=== PATIENT | female | born 1945 | race Caucasian/White ===

== ENCOUNTER 2018-04-30 06:30 | Inpatient (IN) ==
--- NOTE | 2018-04-16 12:15 | ANES ---
Anesthesia Pre Procedure Eval HOME MEDICATIONS aspirin 325 mg tablet 325 mg PO DAILY 12/10/17 [Last Taken 02/06/18] fluoxetine 40 mg capsule 40 mg PO DAILY #90 cap 01/15/18 [Last Taken 02/06/18] furosemide 20 mg tablet 20 mg PO DAILY PRN #30 tab 01/15/18 [Last Taken Unknown] baclofen 5 mg tablet 5 mg PO BID #60 tab 02/13/18 [Last Taken Unknown] gabapentin 300 mg capsule 300 mg PO BID #60 cap 02/13/18 [Last Taken Unknown] trazodone 300 mg tablet 300 mg PO DAILY #30 tab 04/16/18 [Last Taken Unknown] Allergies/Adverse Reactions: Allergies Allergy/AdvReac Type Severity Reaction Status Date / Time fentanyl [From Duragesic] AdvReac Mild dyspnea,lily Verified 04/05/18 09:13 sea pentazocine lactate AdvReac Unknown dizziness Verified 04/05/18 09:13 [From Talwin] amitriptyline AdvReac fatigue Verified 04/05/18 09:13 - Planned Procedure Planned Procedure: Arthroplasty L Total Hip Medication List Reviewed:: Yes Allergies Verified: Yes Medical History (Last Updated 04/16/18 @ 12:14 by Nikita Sanchez CRNA) Degeneration of lumbar or lumbosacral intervertebral disc Onset Date: ~06/26/17 Polio Actinic keratitis Allergic rhinitis Anxiety and depression Onset Date: ~02/22/16 COPD (chronic obstructive pulmonary disease) Onset Date: ~06/21/07 Chronic pain syndrome Onset Date: ~02/15/16 Multi level DJD HTN (hypertension) Onset Date: ~06/26/17 Hyperlipidemia Onset Date: ~04/05/15 residential prescription opiate use MRI 06/14/2015- severe disc height loss at L1-L2 and broad-based disc bulge. At L2-3 she has the same situation. At L3-L4 she has severe disc height loss with broad-based circumferential disc bulge and facet joint changes. At the L4-5 she has broad base circumferential disc bulge and facet joint arthroplasty. At L5-S1 she has severe disc height loss wit broad based circumflex partial disc bulge. Due to her health, she is not a surgical candidate. she has only tolerated oral pain medications. With the changes in the narcotic management recommend no more than 75mg of morphine per day per from [facility] in [place], [place]. Osteoarthrosis Raynauds phenomenon Onset Date: ~04/05/15 Spondylosis lumbar/lumbosacral region with radiculopathy Colonoscopy refused Mammogram declined Surgical History (Last Reviewed 04/16/18 @ 12:14 by Nikita Sanchez CRNA) History of ankle surgery fx-left--pinning- age 15 History of carpal tunnel surgery Onset Date: ~2004 History of hysterectomy Hx laparoscopic cholecystectomy Onset Date: ~08/20/07 --biliary dyskinesia Hx of laminectomy hld postlaminectomy syndrome, not elsewhere classified Hx of neck surgery Family History (Last Reviewed 04/16/18 @ 12:14 by Nikita Sanchez CRNA) Sister Heart disease Father Cancer kidney Mother Cirrhosis of liver Grandmother Heart disease Grandfather Cancer stomach - Family Anesthesia History Family History:: no untoward family reactions to anesthesia, no familial bleeding tendencies, no family history of clotting disorders, no family history of premature - Airway/Neck/Teeth Teeth Condition: missing, poor condition Mallampatti Score: 2 Thyromental (T-M) distance: > 6 cm Mandibulo Hyoid distance: > 3 cm - Respiratory Respiratory History: COPD Smoking Status: Former smoker Discussed smoking cessation including day of surgery: No Sleep Apnea currently treated: No Sleep Apnea by current assessment: No Discussed Risks/Treatment of TIARA: No - Cardiovascular Tolerate Activity: Fair Heart Sounds: S1 & S2, Regular - Anesthesia Assessment and Plan ASA Class: PS, III Anesthesia Type Plan: Spinal
[~2018-04-30 06:30] MED LIST: ROPIVACAINE HCL/PF 100 MG, EPINEPHrine 0.2 MG, KETOROLAC TROMETHAMINE 30 MG in NORMAL S... IJ PRN; TRANEXAMIC ACID 1,000 MG in NORMAL SALINE 100 ML IV PRN; ceFAZolin SODIUM 1 GM VIAL IV PRN
[2018-04-30] MEDS: RINGER'S SOLUTION,LACTATED 1,000 ML IV PRN ×3 (07:20→11:00)
[2018-04-30] MEDS ORDERED: HYDROcodone/ACETAMINOPHEN 1 EACH TABLET PO PRN ×2 (11:31)
[2018-04-30] MEDS ORDERED: ONDANSETRON HCL/PF 2 MG/ML VIAL IV PRN (11:31)
[2018-04-30] MEDS ORDERED: MAGNESIUM HYDROXIDE 30 ML UDC PO PRN (11:31)
[2018-04-30] MEDS ORDERED: NORMAL SALINE 1,000 ML IV PRN (11:31)
[2018-04-30] MEDS ORDERED: MAG HYDROX/ALUMINUM HYD/SIMETH 30 ML UDC PO PRN (11:31)
[2018-04-30] MEDS ORDERED: ACETAMINOPHEN 500 MG TABLET PO PRN (11:31)
[2018-04-30] MEDS ORDERED: FUROSEMIDE 20 MG TABLET PO PRN (11:36)
--- NOTE | 2018-04-30 11:47 | OR ---
Operative Report - Dictated Report Narrative: Date: 04/30/2018 Preoperative diagnosis: Left hip degenerative joint disease. Postoperative diagnosis: Left hip degenerative joint disease. Procedure: Left total hip arthroplasty. Surgeon: Kwadwo Das M.D. Ict Sales Representative: José Becerra PA-C Anesthesia: Spinal and local periarticular joint injection. Complications: None Specimens: Bone for disposal. Estimated blood loss: 150 milliliters. Retained implants: Depuy [place] basic cemented size 6 femoral stem. Size 52 millimeter ouside diameter 3-hole [place] Gription acetabular cup. 52 millimeter outside by 36 millimeter inside diameter highly cross-linked acetabular liner. 36 millimeter diameter + 5 millimeter cobalt chromium femoral head. Cancellous 6.5mm screw 30 millimeter length Indications: Latoya is a 72-year-old female community ambulator. This patient was followed in my clinic for period of time with significant complaints of left hip pain consistent with arthritic changes. She has failed conservative measures including but not limited to activity modification, passage of time, medications, and other conservative measures. Patient wished to proceed with surgical treatment. The risks, benefits, and alternatives were discussed in clinic. The risks of , blood clots, bleeding, infection, nerve/tendon blood vessel/ injury, malposition of components, dislocation and/or instability of joint, intraoperative fracture, postoperative limited range of motion, persistent pain, failure of components, and need for additional procedures. Patient wished to proceed. Consent was obtained after answering all questions. Procedure: After marking the correct extremity on the floor, the patient was taken to the operating room. A timeout was performed. IV antibiotics consisting of 1 g of Ancef was administered prior to the procedure. A spinal anesthetic was induced by anesthesia. A Bergeron catheter was inserted. The patient was then transitioned to a lateral position on a well-padded pegboard. And an axillary roll was placed. The head was in neutral position. The non-ope rative down leg was well-padded with SCD and ALISON hose in place. The arms were supported and padded to protect from any undue pressure on the bony prominences and nerves. Well-padded anterior and posterior pelvic and chest posts were secured in order to maintain a stable position of the pelvis. This was placed so that the pelvis was perpendicular to the floor. The body was in line with the pelvis. Once it was felt that we had protected all the bony prominences and the patient was well secured with a safety belt as well, the leg was pre- scrubbed with alcohol, prepped and draped in a standard sterile fashion. A standard anterior lateral hip incision was marked out over the greater trochanter. Ioban drapes were then placed. The skin incision was then made. Sharp dissection with a scalpel utilizing cautery for hemostasis was carried out down to the gluteus and iliotibial band fascia. This was split in line with the skin incision. The greater trochanter bursa was excised. The anterior and posterior margins of the abductor tendon were identified. The anterior 1/3 of the tendon was tagged and reflected off the greater trochanter leaving a sleeve of tendon for repair at the completion of the case. This exposed the underlying hip joint capsule. A limb length stitch was placed in the skin and referenced off a mingo on the greater trochanter for evaluation of intraoperative limb lengths. An inverted T-type capsulotomy was made extending this up to the brim of the acetabulum. Using Homans to assist with elevation of the soft tissues off the anterior, superior, and inferior aspects of the femoral neck, the hip was then placed in a figure 4 position and the femoral head was dislocated. With the leg in an externally rotated and adducted position, the cutting flag was utilized in order to mingo for a standard femoral neck cut approximately a fingerbreadth above the level of the lesser trochanter. This was done while protecting the surrounding soft tissues with Homans. The femoral head was then removed and sized for guidance on preparation of the acetabulum. It was noted that there was loss of articular cartilage on both the femoral head and weightbearing portions of the acetabulum. We then returned the leg to the table and turned our attention to the acetabulum. While protecting the surrounding soft tissues, the labrum and remaining tissue in the fovea were excised using a scalpel and cautery. A series of reamers up to size 51 millimeter were utilized to prepare the acetabulum. The final reamer had good purchase and exposed the bleeding subchondral bone. The acetabulum was then thoroughly irrigated ensuring that all bony and cartilaginous materials were removed and the final acetabular shell was impacted into place. This was placed in approximately 40 degrees of abduction and 20 degrees of anteversion utilizing the outrigger and body axis for alignment. This had a good press fit. One 6.5mm cancellous screw was placed in the posterior superior quadrant of the acetabulum. The shell was then thoroughly irrigated and the final polyethylene was impacted into place ensuring that it seated completely. This was then protected with a sponge while we returned our attention to the femur. With the leg in a figure 4 position utilizing Onel retractors for soft tissue protection, a box cutting osteotome, followed by Charnley awl, followed by serial broaches were utilized in order to prepare the femur. We were able to get a size 6 broach completely seated. A size 7 broach was advanced but was unable to be completely seated due to concern for causing intra-operative fracture. We elected to proceed with a size 6 cemented stem and trial off of our final stem. The proximal femur was visualized to ensure that there were no signs of fracture. A canal cement plug was placed distally and the canal was thoroughly irrigated using pulsatile vacuum brush device. The canal was then thoroughly dried with a suction device and canal sponge. Cement was vacuum mixed per the text transcriber's instructions and placed into a cement gun. Cement was then placed in a dry irrigated femur and a moderate cementing technique using a pressurizing device. The stem was then placed in the appropriate version compared to her [place] anatomy and held in place while the cement cured and the extruded cement was removed. Once the cement was fully cured we ensured that the stem was stable and that there were no signs of fracture. The extruded cement was removed, and the joint and the capsule were thoroughly evaluated to ensure there were no pa ent fragments. A series of heads were trialed. It was found that a +5 mm femoral head gave good overall stability. There was minimal longitudinal instability. With the leg in the position of sleep the femoral head was well covered. Hip range of motion was able to reach full extension and external rotation to greater than 75 degrees prior to impingement along the posterior acetabulum. The hip was able to be flexed to greater than 90 degrees with internal rotation greater than 60 degrees prior to anterior impingement. The limb lengths were near equal based on comparison to the contralateral side. The hip was then reduced and seated completely. The capsule was repaired with interrupted #1 Ethibond. The abductor tendon was repaired to the greater trochanter utilizing Mersilene tape through drill holes. This was oversewn with #1 Vicryl. The fascia was closed with interrupted #1 Vicryl. The wounds were thoroughly irrigated as we closed in layers. The deep fat layers were closed with 0 Vicryl and the dermis was approximated with interrupted 3-0 Vicryl. The skin was closed with a running subcuticular 4-0 monocryl and a Prineo dressing. All sponge, needle, blade, and instrument counts were correct prior to closing the wounds. Sterile dressings consisting of 4 x 4's, ABD, and tape were applied. The patient was awoken and transferred to her hospital bed and then to the postanesthesia care unit in stable condition. Postoperative condition: The plan is to return to the medical/surgical inpatient floor postoperatively. Postoperatively 24 hours of IV antibiotics, pain control, physical therapy, occupational therapy, and medical comanagement will be utilized. Patient will be weightbearing as tolerated with anterior hip precautions. Postoperative films will be obtained in the recovery room.
--- NOTE | 2018-04-30 12:18 | ANES ---
Post Anesthesia Discharge - Transfer of Care Transfer of Care handoff given to nurse: Yes - Discharge from PACU Discharge from PACU when meets criteria: Yes
--- NOTE | 2018-04-30 13:16 | CONS ---
[facility] - General Date of Service: 04/30/18 Narrative: Patient is seen on the floor. She is post op right hip replacement this morning for for OA. She reports having no pain currently, and denies complaints. Source: patient Exam Limitations: no limitations - History of Present Illness Allergies/Adverse Reactions: Allergies fentanyl [From Duragesic] Adverse Reaction (Mild, Verified 04/30/18 07:05) dyspnea,nausea pentazocine lactate [From Talwin] Adverse Reaction (Unknown, Verified 04/30/18 07:05) dizziness amitriptyline Adverse Reaction (Verified 04/30/18 07:05) fatigue Home Medications: Home Medications Medication Instructions Recorded Last Taken aspirin 325 mg tablet 325 mg PO DAILY 12/10/17 04/21/18 06:00 fluoxetine 40 mg capsule 40 mg PO DAILY #90 cap 01/15/18 02/06/18 furosemide 20 mg tablet 20 mg PO DAILY PRN #30 tab 01/15/18 Unknown trazodone 300 mg tablet 300 mg PO DAILY #30 tab 04/16/18 Unknown baclofen 5 mg tablet 5 mg PO BID #60 tab 04/24/18 Unknown gabapentin 300 mg capsule 300 mg PO BID #60 cap 04/24/18 Unknown Procedures Application of splint (11/25/02) Exploration of tendon sheath of hand (12/09/04) Injection of anesthetic into peripheral nerve for analgesia (06/11/01) Injection of anesthetic into spinal canal for analgesia (12/24/06) Injection of other agent into spinal canal (12/24/06) Injection of steroid (12/24/06) Injection or infusion of other therapeutic or prophylactic substance (06/11/01) Laparoscopic cholecystectomy (08/20/07) Other immobilization, pressure, and attention to wound (01/06/99) Release of carpal tunnel (12/09/04) Medications - Medications Current Medications: Current Medications Cefazolin Sodium (Ancef) 1 gm IV PRN PRN; Protocol PRN Reason: Perioperative Stop: 04/30/18 23:00 Last Admin: 04/30/18 09:15 Dose: 1 gm Documented by: Tranexamic Acid 1,000 mg/ (Sodium Chloride) 110 mls @ 600 mls/hr IV PRN PRN PRN Reason: blood loss reduction Stop: 04/30/18 23:00 Last Admin: 04/30/18 10:30 Dose: 600 mls/hr Documented by: Lactated Ringer's (Lactated Ringers) 1,000 mls @ 175 mls/hr IV .[id number] PRN PRN Reason: HYDRATION Stop: 04/30/18 23:59 Last Admin: 04/30/18 11:00 Dose: 175 mls/hr Documented by: Ropivacaine 100 mg/Epinephrine HCl 0.2 mg/Ketorolac Tromethamine 30 mg/Sodium Chloride 111.2 mls @ 0.01 mls/hr IJ PRN PRN PRN Reason: JOINT INJECTION Stop: 04/30/18 23:59 Last Admin: 04/30/18 11:00 Dose: 0.01 mls/hr Documented by: Review of Systems - Review of Systems Respiratory: Absent: Shortness of Breath Cardiac: Absent: Chest Pain, Edema Abdominal: Absent: Vomiting Physical Examination - Exam Vital Signs: Vital Signs - Last Taken Temp 36.8 C 04/30/18 12:35 Pulse 71 04/30/18 12:35 Resp 15 04/30/18 12:35 BP 160/91 H 04/30/18 12:35 Pulse Ox 99 04/30/18 12:35 O2 Oxygen Delivery Method Room Air Constitutional: Present: Alert, Oriented x3, No distress, Thin and frail Respiratory: Present: normal breath sounds, no respiratory distress Cardiovascular/Chest: Present: regular rate, rhythm Abdomen: Present: soft, nontender Extremity: Absent: lower extremity edema Neurologic: Present: other - sensation to light touch intact to bilateral lower extremities Eye contact: Present: cooperative - Assessments/Findings (1) Osteoarthritis, hip, bilateral Diagnosis(s): Will defer mgt to Dr. Das. She is not in pain currently. Problem: Chronic Qualifiers: (2) Chronic pain Diagnosis(s): Patient weaned herself off morphine last year, and has chronic back pain. She asked today if I could order her a back brace, which will be done through the clinic system. She reports having no pain currently. Problem: Chronic (3) COPD (chronic obstructive pulmonary disease) Diagnosis(s): Remote diagnosis. No symptoms currently, and she does not take medications for COPD. Will monitor her breathing, and add albuterol if needed. Problem: Chronic (4) Atrial fibrillation, transient Diagnosis(s): She had afib on pre-op EKG, not present on subsequent EKGs. She is currently in NSR. Continue telemetry. Problem: Resolved
[2018-04-30] MEDS: ceFAZolin SODIUM 1 GM in DEXTROSE 5 % IN WATER 100 ML IV SCH ×4 (15:03→22:09)
[2018-04-30] MEDS ORDERED: MORPHINE SULFATE 4 MG/ML SYRG IV PRN (19:44)
[2018-04-30] MEDS ORDERED: MORPHINE SULFATE 4 MG/ML SYRG IV ONE (19:48)
[2018-04-30] MEDS ORDERED: MORPHINE SULFATE 2 MG/ML DISP.SYRIN ONE (19:53)
[2018-04-30] MEDS ORDERED: traZODone HCL 50 MG TABLET ONE (20:17)
[2018-04-30] MEDS: oxyCODONE HCL/ACETAMINOPHEN 1 TAB TABLET PO PRN (20:18)
[2018-04-30] MEDS: SENNOSIDES/DOCUSATE SODIUM 1 TAB TABLET PO SCH (20:19)
[2018-04-30] MEDS: traZODone HCL 150 MG TABLET PO SCH (20:34)
[2018-04-30] MEDS ORDERED: TRAZODONE HCL 300 MG PO SCH (21:00)
[2018-05-01] MEDS: oxyCODONE HCL/ACETAMINOPHEN 1 TAB TABLET PO PRN ×4 (04:15→19:34)
[2018-05-01 05:35] LABS: Anion Gap 10.9 mmol/L (6.8-13.8); BUN/Creatinine Ratio 18.5 (9.0-21.6); Calcium * 8.2 mg/dL (7.9-10.9); Carbon Dioxide 26.8 mmol/L (24-32.6); Estimated Creat Clear 80.2; Potassium 3.7 mmol/L (3.4-4.6)
[2018-05-01 05:40] LABS: Hemoglobin 11.5 gm/dL (12.5-16.0); Mean Cell Volume 92.3 fl (78-100); Mean Corpuscular Hemoglobin 30.3 pg (27-31); Mean Corpuscular Hgb Conc 32.9 g/dl (32-36); Mean Platelet Volume 8.9 fl (8-12.5); Platelet Count 184 K/mm3 (150-450); Red Blood Count 3.79 M/mm3 (4.2-5.4); Red Cell Distribution Width 13.8 % (11.5-14.0); White Blood Count 12.3 K/mm3 (4.0-10.5)
[2018-05-01] MEDS ORDERED: MORPHINE SULFATE 2 MG/ML DISP.SYRIN IV PRN (06:33)
[2018-05-01] MEDS: ceFAZolin SODIUM 1 GM in DEXTROSE 5 % IN WATER 100 ML IV SCH ×2 (07:02)
[2018-05-01] MEDS: FLUoxetine HCL 20 MG CAPSULE PO SCH (08:16)
--- NOTE | 2018-05-01 08:55 | PN ---
Subjective - Date and Time Seen Date: 05/01/18 Time: 08:43 Subjective Narrative: Patient reports having muscle spasms in her left hip. She expresses concerns about getting addicted to morphine again. Denies chest pain shortness of breath or swelling. Has not yet had a bowel movement, but was given a stool softener last night. She asks how soon she can get the left hip replaced. Nursing staff reports a dysrhythmia on telemetry, that looks like irregular sinus rhythm. Objective - Review of Systems Respiratory: Denies: Shortness of Breath Cardiac: Denies: Chest Pain, Edema Abdominal: Denies: Vomiting, Constipation Musculoskeletal Complaints: Reports: Joint Pain, Back Pain - Vitals Vitals: Last Vital Signs Temp 37.7 C 05/01/18 08:04 Pulse 70 05/01/18 08:04 Resp 18 05/01/18 08:04 BP 107/65 05/01/18 08:04 Pulse Ox 98 05/01/18 08:04 - Abnormal Lab Findings Abnormal Lab Findings: Abnormal Lab Results 05/01/18 05/01/18 Range/Units 05:20 05:20 WBC 12.3 H (4.0-10.5) K/mm3 RBC 3.79 L (4.2-5.4) M/mm3 Hgb 11.5 L (12.5-16.0) gm/dL Hct 35.0 L (37.0-47.0) % Random Glucose 114 H (70-110) mg/dL - Exam Constitutional: Present: Alert, Oriented x3, Thin and frail Respiratory: Present: normal breath sounds, no respiratory distress Cardiovascular/Chest: Present: regular rate, rhythm Abdomen: Present: Normal bowel sounds, soft, nontender Extremity: Absent: lower extremity edema Eye contact: Present: cooperative, good eye contact Cauti Physician Documentation - Urinary Catheter Management 2-way Urethral Date of Insertion: 04/30/18 Time of Insertion: 09:30 Date of Removal: 05/01/18 Time of Removal: 07:00 Assessment/Plan - Problems/Diagnosis (1) S/P hip replacement Problem: Acute Qualifiers: Laterality: left Qualified Code(s): Z96.642 - Presence of left artificial hip joint Narrative: Patient required morphine overnight, and pain control was switched to Percocet. She expressed concerns about getting addicted again, as she had significant difficulty weaning herself off morphine last year. Discussed a goal of keeping a pain medicine use to less than 14 days. Will add lidocaine patches for her back pain. She reports her back pain is better when she does not move, but is aware she needs to work with physical therapy to optimize hip recovery. She will go to the [facility] short-term when she has achieved physical therapy goals. Offered miralax for potential constipation from the narcotics, but she feels like the stool softener will be enough. (2) Osteoarthritis, hip, bilateral Problem: Chronic Qualifiers: Narrative: Patient is postop day #1 left hip replacement. She asked today when she can have the other hip done, and deferred this answer to her surgeon. (3) Chronic pain Problem: Chronic (4) COPD (chronic obstructive pulmonary disease) Problem: Chronic Narrative: She does not use any medications for COPD at baseline. Denies current dyspnea. She is oxygenating well on room air. (5) Atrial fibrillation, transient Problem: Resolved Narrative: Her heart rhythm appeared irregular, but sinus on telemetry. EKG pending. Her heart rhythm seems regular on auscultation and with palpation of radial pulse.
[2018-05-01] MEDS: LIDOCAINE 1 PATCH ADH..PATCH TP SCH (09:14)
--- NOTE | 2018-05-01 09:14 | PN ---
Subjective - Date and Time Seen Date: 05/01/18 Time: 08:05 Subjective Narrative: Patient reports no acute events. She notes she is still having moderate left hip pain. She notes her pain is worse with ambulation better with rest. She notes no other acute symptoms currently. Objective - Vitals Vitals: Last Vital Signs Temp 37.7 C 05/01/18 08:04 Pulse 70 05/01/18 08:04 Resp 18 05/01/18 08:04 BP 107/65 05/01/18 08:04 Pulse Ox 98 05/01/18 08:04 - Abnormal Lab Findings Abnormal Lab Findings: Abnormal Lab Results 05/01/18 05/01/18 Range/Units 05:20 05:20 WBC 12.3 H (4.0-10.5) K/mm3 RBC 3.79 L (4.2-5.4) M/mm3 Hgb 11.5 L (12.5-16.0) gm/dL Hct 35.0 L (37.0-47.0) % Random Glucose 114 H (70-110) mg/dL - Exam Constitutional: Present: Alert, Cooperative, No distress Respiratory: Present: no respiratory distress Extremity: Present: other - LLE--> sensation intact light touch, distal capillary refill brisk, 5/5 plantar flexion dorsiflexion, 4/5 knee flexion extension, bandages clean dry and intact, diffuse tenderness about patient's left hip Eye contact: Present: cooperative Thoughts: Present: normal thought pattern Cauti Physician Documentation - Urinary Catheter Management 2-way Urethral Date of Insertion: 04/30/18 Time of Insertion: 09:30 Date of Removal: 05/01/18 Time of Removal: 07:00 Assessment/Plan Plan Narrative: -72-year-old female postop day 1 status post left cemented total hip arthroplasty -Weightbearing as tolerated, anterior precautions -PT/OT progress as tolerated -Maintain postoperative dressings in place -P.o. diet as tolerated -P.o. pain medication as needed -DVT prophylaxis, Lovenox, SCDs in bed, ALISON hose -Hemoglobin 11.5, continue to monitor -Chronic medical conditions per medicine team -Disposition: Once all PT goals are met, patient is stable, pain is well controlled, plan to discharge to long-term facility for physical therapy - Problems/Diagnosis (1) S/P hip replacement Problem: Acute Qualifiers: Laterality: left Qualified Code(s): Z96.642 - Presence of left artificial hip joint
[2018-05-01] MEDS: ENOXAPARIN SODIUM 40 MG/0.4 ML SYRG SC SCH (10:14)
[2018-05-01] MEDS: SENNOSIDES/DOCUSATE SODIUM 1 TAB TABLET PO SCH (20:41)
[2018-05-01] MEDS: POLYETHYLENE GLYCOL 3350 119 GM BTL PO SCH (20:41)
[2018-05-01] MEDS: traZODone HCL 150 MG TABLET PO SCH (20:42)
[2018-05-02] MEDS: oxyCODONE HCL/ACETAMINOPHEN 1 TAB TABLET PO PRN ×5 (04:14→22:30)
[2018-05-02 05:24] LABS: BUN/Creatinine Ratio 13.6 (9.0-21.6); Calcium * 8.5 mg/dL (7.9-10.9); Carbon Dioxide 27.5 mmol/L (24-32.6); Estimated Creat Clear 65.6; Potassium 3.5 mmol/L (3.4-4.6)
[2018-05-02 05:25] LABS: Hematocrit 32.9 % (37.0-47.0); Hemoglobin 10.9 gm/dL (12.5-16.0); Mean Cell Volume 93.5 fl (78-100); Mean Corpuscular Hgb Conc 33.1 g/dl (32-36); Mean Platelet Volume 8.9 fl (8-12.5); Platelet Count 163 K/mm3 (150-450); Red Blood Count 3.52 M/mm3 (4.2-5.4); Red Cell Distribution Width 13.8 % (11.5-14.0); White Blood Count 8.4 K/mm3 (4.0-10.5)
--- NOTE | 2018-05-02 08:16 | PN ---
Subjective - Date and Time Seen Date: 05/02/18 Time: 08:16 Subjective Narrative: Patient feels like her pain is controlled with Percocet. She is eating and drinking without difficulty. She has not yet had a bowel movement. Is working with physical therapy. Objective - Review of Systems Generalized/Overall Review: Denies: Fever Respiratory: Denies: Shortness of Breath Cardiac: Denies: Chest Pain, Edema Abdominal: Denies: Nausea, Diarrhea Genitourinary Symptoms: Denies: Burning Musculoskeletal Complaints: Reports: Joint Pain, Back Pain - Vitals Vitals: Last Vital Signs Temp 37.1 C 05/02/18 06:19 Pulse 81 05/02/18 06:19 Resp 20 05/02/18 06:19 BP 93/51 05/02/18 06:19 Pulse Ox 95 05/02/18 06:19 - Abnormal Lab Findings Abnormal Lab Findings: Abnormal Lab Results 05/02/18 05/02/18 Range/Units 05:12 05:12 RBC 3.52 L (4.2-5.4) M/mm3 Hgb 10.9 L (12.5-16.0) gm/dL Hct 32.9 L (37.0-47.0) % Random Glucose 116 H (70-110) mg/dL - Exam Constitutional: Present: Alert, Oriented x3, Elderly, Thin and frail Respiratory: Present: normal breath sounds, no respiratory distress Cardiovascular/Chest: Present: regular rate, rhythm Abdomen: Present: soft, nontender Extremity: Absent: lower extremity edema Cauti Physician Documentation - Urinary Catheter Management 2-way Urethral Date of Insertion: 04/30/18 Time of Insertion: 09:30 Date of Removal: 05/01/18 Time of Removal: 07:00 Assessment/Plan - Problems/Diagnosis (1) S/P hip replacement Problem: Acute Qualifiers: Laterality: left Qualified Code(s): Z96.642 - Presence of left artificial hip joint Narrative: Replacement secondary to osteoarthritis. Her pain is currently controlled. She is working with physical therapy, and anticipate discharge to facility soon. (2) Osteoarthritis, hip, bilateral Problem: Chronic Qualifiers: (3) Chronic pain Problem: Chronic Narrative: Patient weaned herself from morphine last year, and has concerns about being addicted again. Discussed trying to limit pain medications to less than 2 weeks. A back brace has been ordered through [facility]. (4) COPD (chronic obstructive pulmonary disease) Problem: Chronic Narrative: She does not take medications or inhalers for COPD at baseline, and is not complaining of any shortness of breath. Is oxygenating well on room air. (5) Atrial fibrillation, transient Problem: Resolved
[2018-05-02] MEDS: LIDOCAINE 1 PATCH ADH..PATCH TP SCH (08:23)
[2018-05-02] MEDS: POLYETHYLENE GLYCOL 3350 119 GM BTL PO SCH (08:23)
[2018-05-02] MEDS: FLUoxetine HCL 20 MG CAPSULE PO SCH (08:23)
--- NOTE | 2018-05-02 08:38 | PN ---
Subjective - Date and Time Seen Date: 05/02/18 Time: 08:35 Subjective Narrative: Patient reports no acute events. She still notes moderate pain in her hip at rest and with standing. She notes no other significant concerns acutely. She does ask when she can have her right hip replaced if recovery goes well with her left hip. She notes she has been up and walked to the bathroom and back to her chair. Objective - Vitals Vitals: Last Vital Signs Temp 37.1 C 05/02/18 06:19 Pulse 81 05/02/18 06:19 Resp 20 05/02/18 06:19 BP 93/51 05/02/18 06:19 Pulse Ox 95 05/02/18 06:19 - Abnormal Lab Findings Abnormal Lab Findings: Abnormal Lab Results 05/02/18 05/02/18 Range/Units 05:12 05:12 RBC 3.52 L (4.2-5.4) M/mm3 Hgb 10.9 L (12.5-16.0) gm/dL Hct 32.9 L (37.0-47.0) % Random Glucose 116 H (70-110) mg/dL - Exam Constitutional: Present: Alert, Cooperative, No distress Respiratory: Present: no respiratory distress Extremity: Present: other - LLE--> bandages in place clean, dry, intact, sensation intact light touch, distal capillary refill brisk, distal dorsal pedis pulse 2+, 5/5 plantar flexion dorsiflexion of the ankle, diffuse tenderness about left hip Cauti Physician Documentation - Urinary Catheter Management 2-way Urethral Date of Insertion: 04/30/18 Time of Insertion: 09:30 Date of Removal: 05/01/18 Time of Removal: 07:00 Assessment/Plan Plan Narrative: -72-year-old female postop day 2 status post left cemented total hip arthroplasty -Weightbearing as tolerated, anterior precautions -PT/OT progress as tolerated -Maintain postoperative dressings in place -P.o. diet as tolerated -P.o. pain medication as needed -DVT prophylaxis, Lovenox, SCDs in bed, ALISON hose -Hemoglobin 10.9, stable -Chronic medical conditions per medicine team -Disposition: Once all PT goals are met, patient is stable, pain is well controlled, plan to discharge to residential facility for physical therapy([facility]) - Problems/Diagnosis (1) S/P hip replacement Problem: Acute Qualifiers: Laterality: left Qualified Code(s): Z96.642 - Presence of left artificial hip joint
[2018-05-02] MEDS: ENOXAPARIN SODIUM 40 MG/0.4 ML SYRG SC SCH (10:26)
[2018-05-02] MEDS: SENNOSIDES/DOCUSATE SODIUM 1 TAB TABLET PO SCH (22:30)
[2018-05-02] MEDS: traZODone HCL 150 MG TABLET PO SCH (22:30)
[2018-05-03] MEDS: oxyCODONE HCL/ACETAMINOPHEN 1 TAB TABLET PO PRN ×2 (05:24→09:51)
--- NOTE | 2018-05-03 08:46 | DS ---
(1) S/P hip replacement Problem: Acute Qualifiers: Laterality: left Qualified Code(s): Z96.642 - Presence of left artificial hip joint Description of Stay: Patient is a 72 y/o female that was admitted post-operatively after left total hip arthroplasty. Surgery was uncomplicated, she was admitted for pain control, PT/OT, observation. She has had an uncomplicated stay. She has advanced with PT. She is ambulating with a walker at this time. Pain is well controlled with PO pain medication, no significant side effects, she is tolerating PO diet at this time. Plan to discharge to detention facility for continued PT. She will f/u at orthopedic outpatient clinic with Dr. Das at 2 weeks post-op. She can continue with the following recommendations. -72-year-old female postop day 3 status post left cemented total hip arthroplasty -Weightbearing as tolerated, anterior precautions -PT/OT progress as tolerated -Maintain postoperative dressings in place -P.o. diet as tolerated -P.o. pain medication as needed, Percocet 1-2 tabs every 4-6 hours PO PRN -DVT prophylaxis, Lovenox for 8 more days followed by 325mg aspirin daily for 6 weeks, ALSION hose Procedures Performed: see notes below List Procedures: left total hip arthroplasty Results and Findings: Lab Pending Results 05/01/18 05:20: WBC 12.3 H, RBC 3.79 L, Hgb 11.5 L, Hct 35.0 L, MCV 92.3, MCH 30.3, MCHC 32.9, RDW 13.8, Plt Count 184, MPV 8.9 05/01/18 05:20: Sodium 140, Plasma Sodium 140, Potassium 3.7, Chloride 106, Carbon Dioxide 26.8, Anion Gap 10.9, BUN 10, Creatinine 0.54, Est GFR (Non-Af Amer) 119 D, BUN/Creatinine Ratio 18.5, Random Glucose 114 H, Calcium 8.2 05/02/18 05:12: WBC 8.4 D, RBC 3.52 L, Hgb 10.9 L, Hct 32.9 L, MCV 93.5, MCH 31.0, MCHC 33.1, RDW 13.8, Plt Count 163, MPV 8.9 05/02/18 05:12: Sodium 140, Plasma Sodium 140, Potassium 3.5, Chloride 104, Carbon Dioxide 27.5, Anion Gap 12.0, BUN 9, Creatinine 0.66, Est GFR (Non-Af Amer) 94 D, BUN/Creatinine Ratio 13.6, Random Glucose 116 H, Calcium 8.5 Discharge Location: [facility] Disposition: SNF Condition: Good Level of Care: SNF Discharge Activity: Activity as tolerated, Weight bearing - anterior precautions Discharge Diet: General/regular food Group Home Therapy: Physicial Therapy, Occupation Therapy Referrals: Davida Lopez DO [Primary Care Provider] - Problem Oriented Discharge Instructions to Patient/Family: Total Hip Replacement, Care After, [id number] Print Language (Croatian or Tamazight Available): Croatian Additional Patient Instructions (free text): Follow up with Dr Das Orthopedic appointment on SundayMay 15 at 9:30am. Patient going to [facility] for SNF therapies PT and OT to evaluate and treat, please call and fax discharge information to [facility]. Weightbearing as tolerated, anterior precautions. -Maintain post-op dressing in place, if any drainage or erythema around incision, call orthopedic outpatient clinic, if drainage apply guaze and tape and call orthopedic outpatient clinic Prescriptions (Any new or edited meds): Enoxaparin Sodium [Lovenox] 40 mg SC Q24H #7 disp.syrin oxyCODONE HCL/ACETAMINOPHEN [Percocet 5 MG/325 MG] 1 - 2 tab PO Q4H PRN #60 tab PRN Reason: Severe Pain (Pain Scale 7-10) Sennosides/Docusate Sodium [Sm Stool Softener-Stim Lax Tab] 1 ea PO BID #30 tab Complete Home Medications List: Complete Home Medication List: aspirin 325 mg tablet 325 mg PO DAILY 12/10/17 fluoxetine 40 mg capsule 40 mg PO DAILY #90 cap 01/15/18 furosemide 20 mg tablet 20 mg PO DAILY PRN #30 tab 01/15/18 trazodone 300 mg tablet 300 mg PO DAILY #30 tab 04/16/18 baclofen 5 mg tablet 5 mg PO BID #60 tab 04/24/18 gabapentin 300 mg capsule 300 mg PO BID #60 cap 04/24/18 back brace See Dose Instructions .ROUTE .MEDSUPPLY #1 ea 04/30/18 Enoxaparin Sodium [Lovenox] 40 mg SC Q24H #7 disp.syrin 05/03/18 Polyethylene Glycol 3350 [Miralax] 17 gm PO DAILY #0 btl 05/03/18 Sennosides/Docusate Sodium [Sm Stool Softener-Stim Lax Tab] 1 ea PO BID #30 tab 05/03/18 oxyCODONE HCL/ACETAMINOPHEN [Percocet 5 MG/325 MG] 1 - 2 tab PO Q4H PRN #60 tab 05/03/18
--- NOTE | 2018-05-03 09:28 | PN ---
Subjective - Date and Time Seen Date: 05/03/18 Time: 09:24 Subjective Narrative: Patient reports doing well. She hasn't had a BM yet, but doesn't feel uncomfortable. Will be going to the [place] today. Objective - Review of Systems Generalized/Overall Review: Denies: Fever Respiratory: Denies: Cough, Shortness of Breath Cardiac: Denies: Chest Pain, Edema Abdominal: Reports: Constipation. Denies: Vomiting Genitourinary Symptoms: Reports: No Symptoms Reported Musculoskeletal Complaints: Reports: Joint Pain - left hip, Back Pain - Vitals Vitals: Last Vital Signs Temp 37.2 C 05/03/18 06:20 Pulse 84 05/03/18 06:20 Resp 16 05/03/18 06:20 BP 100/47 05/03/18 06:20 Pulse Ox 94 05/03/18 06:20 Cauti Physician Documentation - Urinary Catheter Management 2-way Urethral Date of Insertion: 04/30/18 Time of Insertion: 09:30 Date of Removal: 05/01/18 Time of Removal: 07:00 Assessment/Plan - Problems/Diagnosis (1) S/P hip replacement Problem: Acute Qualifiers: Laterality: left Qualified Code(s): Z96.642 - Presence of left artificial hip joint Narrative: She is POD #2, and recovering well. (2) Osteoarthritis, hip, bilateral Problem: Chronic Qualifiers: (3) Chronic pain Problem: Chronic (4) COPD (chronic obstructive pulmonary disease) Problem: Chronic Narrative: She does not require any meds for her COPD, and had no difficulties this admission. (5) Atrial fibrillation, transient Problem: Resolved Narrative: Was present on pre-op EKG, but not on subsequent EKGs. She was seen by cardiology, and no treatment needed currently. (6) Constipation due to opioid therapy Problem: Suspected Narrative: Patient reports using miralax when prescribed morphine in the past. She received miralax on 05/01 and 05/02, but has not yet had a BM. Could increase to bid if needed.
[2018-05-03] MEDS: FLUoxetine HCL 20 MG CAPSULE PO SCH (09:42)
[2018-05-03] MEDS: LIDOCAINE 1 PATCH ADH..PATCH TP SCH (09:42)
[2018-05-03] MEDS: POLYETHYLENE GLYCOL 3350 119 GM BTL PO SCH (09:43)
[2018-05-03] MEDS: ENOXAPARIN SODIUM 40 MG/0.4 ML SYRG SC SCH (09:43)
[2018-05-03 10:15] VITALS: BP 122/69
== END 2018-05-03 10:30 | DRG 470 ==
LOC: MS 06:30
PROVIDERS: ADMIT Orthopaedic Surgery; ATTEND Orthopaedic Surgery
DX: M16.0 Bilateral primary osteoarthritis of hip; I48.91 Unspecified atrial fibrillation; J44.9 Chronic obstructive pulmonary disease, unspecified; T40.2X5A Adverse effect of other opioids, initial encounter; G89.29 Other chronic pain; K59.03 Drug induced constipation; I49.9 Cardiac arrhythmia, unspecified
CPT/HCPCS: 36415; 73502; 80048; 85027; 93005; 97110; 97116; 97161; 97165; 97530; 97535

== ENCOUNTER 2018-12-10 05:48 | Inpatient (IN) ==
[2018-12-10] MEDS ORDERED: ROPIVACAINE HCL/PF 100 MG, EPINEPHrine 0.2 MG, KETOROLAC TROMETHAMINE 30 MG in NORMAL S... IJ PRN (06:00)
[2018-12-10] MEDS ORDERED: ceFAZolin SODIUM 1 GM VIAL IV PRN (06:00)
[2018-12-10] MEDS ORDERED: TRANEXAMIC ACID 1,000 MG in NORMAL SALINE 100 ML IV PRN (06:00)
[2018-12-10] MEDS: RINGER'S SOLUTION,LACTATED 1,000 ML IV PRN ×4 (07:06→17:18)
--- NOTE | 2018-12-10 07:23 | ANES ---
Anesthesia Pre Procedure Eval Vitals/Labs: Last Vital Signs Temp 37.3 C 12/10/18 06:30 Pulse 75 12/10/18 06:30 Resp 17 12/10/18 06:30 BP 140/73 12/10/18 06:30 Pulse Ox 97 12/10/18 06:30 HOME MEDICATIONS aspirin 325 mg tablet 325 mg PO DAILY 12/10/17 [Last Taken 11/22/18] gabapentin 300 mg capsule 300 mg PO BID #180 cap 09/30/18 [Last Taken 12/09/18] tizanidine 2 mg capsule 2 mg PO TID PRN #270 cap 09/30/18 [Last Taken Unknown] trazodone 300 mg tablet 300 mg PO DAILY #90 tab 09/30/18 [Last Taken 12/09/18] fluticasone propionate 50 mcg/actuation nasal spray,suspension 1 spray JAS DAILY #9.9 g 11/28/18 [Last Taken 12/09/18] fluoxetine 40 mg capsule 40 mg PO DAILY #90 cap 12/04/18 [Last Taken 12/09/18] lansoprazole 30 mg capsule,delayed release 30 mg PO DAILY #90 cap 12/04/18 [Last Taken 12/09/18] Back Brace [Back Stabilizer] 0 ea .ROUTE .MEDSUPPLY 12/10/18 [Last Taken 12/09/18] Allergies/Adverse Reactions: Allergies Allergy/AdvReac Type Severity Reaction Status Date / Time fentanyl [From Duragesic] Allergy Intermediate dyspnea,lily Verified 12/10/18 06:43 sea amitriptyline AdvReac Mild fatigue Verified 12/10/18 06:43 pentazocine lactate AdvReac Mild dizziness Verified 12/10/18 06:43 [From Nilewin] - Planned Procedure Planned Procedure: Right Total Hip Arthroplasty Medication List Reviewed:: Yes Allergies Verified: Yes Medical History (Updated 12/10/18 @ 06:45 by Koki Ryan RN) Wears glasses Actinic keratitis Allergic rhinitis Anxiety and depression Onset Date: ~02/22/16 COPD (chronic obstructive pulmonary disease) Onset Date: ~06/21/07 Chronic pain syndrome Onset Date: ~02/15/16 Multi level DJD Degeneration of lumbar or lumbosacral intervertebral disc Onset Date: ~06/26/17 HTN (hypertension) Onset Date: ~06/26/17 Hyperlipidemia Onset Date: ~04/05/15 termination clerk prescription opiate use HISTORY- QUIT TAKING MORPHINE 11/2017 MRI 06/14/2015- severe disc height loss at L1-L2 and broad-based disc bulge. At L2-3 she has the same situation. At L3-L4 she has severe disc height loss with broad-based circumferential disc bulge and facet joint changes. At the L4-5 she has broad base circumferential disc bulge and facet joint arthroplasty. At L5-S1 she has severe disc height loss wit broad based circumflex partial disc bulge. Due to her health, she is not a surgical candidate. she has only tolerated oral pain medications. With the changes in the narcotic management recommend no more than 75mg of morphine per day per from [facility] in [place], [place]. Osteoarthrosis Raynauds phenomenon Onset Date: ~04/05/15 Spondylosis lumbar/lumbosacral region with radiculopathy Colonoscopy refused Mammogram declined Polio Surgical History (Updated 12/10/18 @ 06:44 by Koki Ryan RN) H/O total hip arthroplasty Onset Date: ~04/30/18 Procedure: Left total hip arthroplasty. Dr. Das History of ankle surgery fx-left--pinning- age 15 History of carpal tunnel surgery Onset Date: ~2004 , bilateral History of hysterectomy Hx laparoscopic cholecystectomy Onset Date: ~08/20/07 --biliary dyskinesia Hx of laminectomy hld postlaminectomy syndrome, not elsewhere classified Hx of neck surgery Family History (Updated 12/10/18 @ 06:44 by Koki Ryan RN) Sister Heart disease Father Cancer kidney Mother Cirrhosis of liver Grandmother Heart disease Grandfather Cancer stomach Daughter Alive and well Son Alive and well - Family Anesthesia History Family History:: no untoward family reactions to anesthesia, no familial bleeding tendencies, no family history of clotting disorders, no family history of premature - Airway/Neck/Teeth Teeth Condition: intact, poor condition Neck Exam: full range of motion Mallampatti Score: 1 Thyromental (T-M) distance: > 6 cm Mandibulo Hyoid distance: > 3 cm - Respiratory Respiratory Physical: lungs clear Smoking Status: Former smoker - quit 15 years Sleep Apnea currently treated: No Sleep Apnea by current assessment: No - Cardiovascular Cardiac History: hypertension - not currently treated. Tolerate Activity: Poor - with walker Heart Sounds: S1 & S2, Regular - Anesthesia Assessment and Plan ASA Class: PS, III
[2018-12-10] MEDS ORDERED: ACETAMINOPHEN 500 MG TABLET PO PRN (09:40)
[2018-12-10] MEDS ORDERED: oxyCODONE HCL/ACETAMINOPHEN 1 TAB TABLET PO PRN (09:40)
[2018-12-10] MEDS ORDERED: ONDANSETRON HCL/PF 2 MG/ML VIAL IV PRN (09:40)
[2018-12-10] MEDS ORDERED: MAGNESIUM HYDROXIDE 30 ML UDC PO PRN (09:40)
[2018-12-10] MEDS ORDERED: MAG HYDROX/ALUMINUM HYD/SIMETH 30 ML UDC PO PRN (09:40)
[2018-12-10] MEDS ORDERED: MORPHINE SULFATE 2 MG/ML DISP.SYRIN IV PRN (09:40)
[2018-12-10] MEDS ORDERED: tiZANidine HCL 4 MG TABLET PO PRN (09:45)
[2018-12-10] MEDS ORDERED: [UNRECOGNIZED DRUG - OTHER] SCH (09:45)
--- NOTE | 2018-12-10 09:52 | OR ---
Operative Report - Dictated Report Narrative: Date: 12/10/2018 Preoperative diagnosis: Right hip degenerative joint disease. Postoperative diagnosis: Right hip degenerative joint disease. Procedure: Right total hip arthroplasty. Surgeon: Kwadwo Das M.D. Family Worker: José Becerra PA-C provided a set of essential, skilled, educated hands that assisted in positioning, transfer, retraction, manipulation, irrigation, closure of wounds, and placement of dressings all of which could not be provided by the available surgical crew. Anesthesia: Spinal and local periarticular joint injection. Complications: None Specimens: Bone for disposal. Estimated blood loss: 200 milliliters. Retained implants: Depuy Corail size 16 femoral stem standard offset. Size 52 millimeter ouside diameter 3-hole [place] Gription acetabular cup. 52 millimeter outside by 36 millimeter inside diameter highly cross-linked acetabular liner. 36 millimeter diameter + 5 millimeter cobalt chromium femoral head. Cancellous 6.5mm screw 30 millimeter length Indications: Latoya is a 72-year-old female community ambulator with sign ificant complaints of right hip pain consistent with arthritic changes. She has failed conservative measures including but not limited to activity modification, passage of time, medications, injections, and other conservative measures. Patient wished to proceed with surgical treatment. The risks, benefits, and alternatives were discussed in clinic. The risks of , blood clots, bleeding, infection, nerve/tendon blood vessel/ injury, malposition of components, dislocation and/or instability of joint, intraoperative fracture, postoperative limited range of motion, persistent pain, failure of components, and need for additional procedures. Patient wished to proceed. Consent was obtained after answering all questions. Procedure: After marking the correct extremity on the floor, the patient was taken to the operating room. A timeout was performed. IV antibiotics consisting of 1 g of Ancef were administered prior to the procedure. A spinal anesthetic was induced by anesthesia. A Bergeron catheter was inserted. The patient was then transitioned to a lateral position on a well-padded pegboard. And an axillary roll was placed. The head was in neutral position. The non-operative down leg was well-padded with SCD and ALISON hose in place. The arms were supported and padded to protect from any undue pressure on the bony prominences and nerves. Well-padded anterior and posterior pelvic and chest posts were secured in order to maintain a stable position of the pelvis. This was placed so that the pelvis was perpendicular to the floor. The body was in line with the pelvis. Once it was felt that we had protected all the bony prominences and the patient was well secured with a safety belt as well, the leg was pre-scrubbed with alcohol, prepped and draped in a standard sterile fashion. A standard anterior lateral hip incision was marked out over the greater trochanter. Ioban drapes were then placed. The skin incision was then made. Sharp dissection with a scalpel utilizing cautery for hemostasis was carried out down to the gluteus and iliotibial band fascia. This was split in line with the skin incision. The greater trochanter bursa was excised. The anterior and posterior margins of the abductor tendon were identified. The anterior 1/3 of the tendon was tagged and reflected off the greater trochanter leaving a sleeve of tendon for repair at the completion of the case. This exposed the underlying hip joint capsule. A limb length stitch was placed in the skin and referenced off a mingo on the greater trochanter for evaluation of intraoperative limb lengths. An inverted T-type capsulotomy was made extending this up to the brim of the acetabulum. Using Homans to assist with elevation of the soft tissues off the anterior, superior, and inferior aspects of the femoral neck, the hip was then placed in a figure 4 position and the femoral head was dislocated. With the leg in an externally rotated and adducted position, the cutting flag was utilized in order to mingo for a standard femoral neck cut approximately a fingerbreadth above the level of the lesser trochanter. This was done while protecting the surrounding soft tissues with Homans. The femoral head was then removed and sized for guidance on preparation of the acetabulum. It was noted that there was loss of articular cartilage on both the femoral head and weightbearing portions of the acetabulum. We then returned the leg to the table and turned our attention to the acetabulum. While protecting the surrounding soft tissues, the labrum and remaining tissue in the fovea were excised using a scalpel and cautery. A series of reamers up to size 51 millimeter were utilized to prepare the acetabulum. The final reamer had good purchase and exposed the bleeding subchondral bone. The acetabulum was then thoroughly irrigated ensuring that all bony and cartilaginous materials were removed and the final acetabular shell was impacted into place. This was placed in approximately 45 degrees of abduction and 20 degrees of anteversion utilizing the outrigger and body axis for alignment. This had a good press fit. One 6.5 x 30mm cancellous screw was placed in the posterior superior quadrant of the acetabulum. The shell was then thoroughly irrigated and the final polyethylene was impacted into place ensuring that it seated completely. This was then protected with a sponge while we returned our attention to the femur. With the leg in a figure 4 position utilizing Homans for soft tissue protection, a box cutting osteotome, followed by Ileneey awl, followed by serial reamers and broaches were utilized in order to prepare the femur. It was found that a size 16 broach gave good axial and rotational stability. The calcar reamer was utilized in order to clean up the cut edges. The proximal femur was visualized to ensure that there were no signs of fracture. A series of heads and necks were trialed. It was found that a standard neck and a + 5 mm femoral head gave good overall stability. There was minimal longitudinal instability. With the leg in the position of sleep the femoral head was well covered. Hip range of motion was able to reach full extension and external rotation to greater than 75 degrees prior to impingement along the posterior acetabulum. The hip was able to be flexed to greater than 90 degrees with internal rotation greater than 60 degrees prior to anterior impingement. The limb lengths were near equal based on comparison to the contralateral side and the previously placed limb length stitch. At this point was felt this was the appropriately sized femoral stem as well as neck and femoral head. The trial implants were removed. The femur was irrigated. The final implants were impacted in the place and the hip was reduc ed. After ensuring that there was no damage to the proximal femur, the standard periarticular joint injection of ropivacaine, Toradol, and epinephrine were injected into the joint capsule and surrounding soft tissues. The capsule was repaired with interrupted #1 Vicryl. The abductor tendon was repaired to the greater trochanter utilizing #5 Ethibond. This was oversewn with #1 Vicryl. The fascia was closed with running #1 Stratafix PDS. The wounds were thoroughly irrigated as we closed in layers. The deep fat layers were closed with running 0 Stratafix PDS. The subcutaneous tissue was closed with interrupted 3-0 Vicryl and the skin with a running subcuticular 4-0 monocryl and Prineo dressing. All sponge, needle, blade, and instrument counts were correct prior to closing the wounds. Sterile dressings consisting of 4 x 4's, ABD, and tape were applied. The patient was awoken and transferred to her hospital bed and then to the postanesthesia care unit in stable condition. Postoperative condition: The plan is to admit to the medical/surgical inpatient floor postoperatively. There will be a projected 2 to 4 day hospital stay. Postoperatively 24 hours of IV antibiotics, pain control, physical therapy, occupational therapy, and medical comanagement will be utilized. Patient will be weightbearing as tolerated with anterior hip precautions. Postoperative films will be obtained in the recovery room.
--- NOTE | 2018-12-10 10:09 | ANES ---
Post Anesthesia Discharge - Transfer of Care Transfer of Care handoff given to nurse: Yes - Discharge from PACU Discharge from PACU when meets criteria: Yes - Awake with some back pain
--- NOTE | 2018-12-10 10:21 | ANES ---
Post Anesthesia Assessment - Vital Signs Vitals: Last Vital Signs Temp 36.4 C 12/10/18 10:05 Pulse 68 12/10/18 10:15 Resp 12 12/10/18 10:15 BP 118/73 12/10/18 10:15 Pulse Ox 99 12/10/18 10:15 Airway Patency: Normal - Mental Status Level Of Consciousness: Awake, Alert, Appropriate - Pain Level Pain Score: 3 - N/V Assessment Nausea/Vomiting Presence: None Dehydration:: No
[2018-12-10] MEDS: oxyCODONE HCL/ACETAMINOPHEN 1 TAB TABLET PO PRN ×3 (13:41→22:00)
[2018-12-10] MEDS: ceFAZolin SODIUM 1 GM in DEXTROSE 5 % IN WATER 100 ML IV SCH ×4 (13:54→22:00)
[2018-12-10] MEDS ORDERED: CYCLOBENZAPRINE HCL 10 MG TABLET PO PRN ×2 (15:12→15:17)
[2018-12-10] MEDS: SENNOSIDES/DOCUSATE SODIUM 1 TAB TABLET PO SCH (21:59)
[2018-12-10] MEDS: GABAPENTIN 300 MG CAPSULE PO SCH (22:00)
[2018-12-11] MEDS: oxyCODONE HCL/ACETAMINOPHEN 1 TAB TABLET PO PRN ×3 (05:06→19:01)
[2018-12-11] MEDS: ceFAZolin SODIUM 1 GM in DEXTROSE 5 % IN WATER 100 ML IV SCH ×2 (05:07)
[2018-12-11 06:03] LABS: Hematocrit 32.5 % (37.0-47.0); Hemoglobin 10.9 gm/dL (12.5-16.0); Mean Cell Volume 94.2 fl (78-100); Mean Corpuscular Hemoglobin 31.6 pg (27-31); Mean Corpuscular Hgb Conc 33.5 g/dl (32-36); Platelet Count 163 K/mm3 (150-450); Red Blood Count 3.45 M/mm3 (4.2-5.4); Red Cell Distribution Width 13.2 % (11.5-14.0); White Blood Count 8.4 K/mm3 (4.0-10.5)
[2018-12-11 06:11] LABS: Anion Gap 8.1 mmol/L (6.8-13.8); BUN/Creatinine Ratio 16.7 (9.0-21.6); Carbon Dioxide 29.8 mmol/L (24-32.6); Estimated Creat Clear 72.1; Potassium 3.9 mmol/L (3.4-4.6)
--- NOTE | 2018-12-11 07:59 | PN ---
Subjective - Date and Time Seen Date: 12/11/18 Time: 07:45 Subjective Narrative: Patient reports she is having moderate pain. She notes that she is had no acute complications overnight. Patient states she has been up and ambulated about her room with assistance. Patient notes she has no other acute symptoms currently. She notes the oral pain medication does improve her pain, however it is still significant. Pain is worse with weightbearing better with rest. Objective - Vitals Vitals: Last Vital Signs Temp 37.4 C 12/11/18 06:00 Pulse 86 12/11/18 06:00 Resp 16 12/11/18 06:00 BP 134/76 12/11/18 06:00 Pulse Ox 94 12/11/18 06:00 - Abnormal Lab Findings Abnormal Lab Findings: Abnormal Lab Results 12/11/18 12/11/18 Range/Units 05:30 05:30 RBC 3.45 L (4.2-5.4) M/mm3 Hgb 10.9 L (12.5-16.0) gm/dL Hct 32.5 L (37.0-47.0) % MCH 31.6 H (27-31) pg Chloride 107 H (97-106) mmol/L Random Glucose 127 H (70-110) mg/dL - Exam Constitutional: Present: Alert, Cooperative Respiratory: Present: no respiratory distress Extremity: Present: other - RLE--> bandages clean/dry/intact, sensation intact light touch, dorsal pedis pulse 2+, 5/5 plantarflexion dorsiflexion of the ankle, diffuse mild to moderate tenderness about right hip Cauti Physician Documentation - Urinary Catheter Management Urethral (Bergeron) Date of Insertion: 12/10/18 Time of Insertion: 07:55 Assessment/Plan Plan Narrative: -72 y/o female postop day 1 status post right total hip arthroplasty -Weightbearing as tolerated, anterior precautions, assistive device PRN -PT/OT progress as tolerated -P.o. diet as tolerated -P.o. pain medication PRN -DVT prophylaxis: Lovenox, SCDs in bed, ALISON hose knee-high -Maintain surgical dressings in place -Hemoglobin 10.9, continue to monitor -Disposition: Continue to monitor for postoperative complications, progress with physical therapy, return to p.o. diet, pain control - Problems/Diagnosis (1) S/P hip replacement Problem: Acute Qualifiers: Laterality: right Qualified Code(s): Z96.641 - Presence of right artificial hip joint
[2018-12-11] MEDS: ENOXAPARIN SODIUM 40 MG/0.4 ML SYRG SC SCH (08:39)
[2018-12-11] MEDS: FLUoxetine HCL 20 MG CAPSULE PO SCH (08:40)
[2018-12-11] MEDS: PANTOPRAZOLE SODIUM 40 MG TABLET.EC PO SCH (08:40)
[2018-12-11] MEDS: GABAPENTIN 300 MG CAPSULE PO SCH ×2 (08:40→20:23)
[2018-12-11] MEDS: FLUTICASONE PROPIONATE 120 SPRAY INHALER NS SCH (08:40)
[2018-12-11] MEDS ORDERED: traZODone HCL 150 MG TABLET PO SCH (09:00)
[2018-12-11] MEDS: traZODone HCL 150 MG TABLET PO SCH (19:30)
[2018-12-11] MEDS: SENNOSIDES/DOCUSATE SODIUM 1 TAB TABLET PO SCH (20:23)
[2018-12-12] MEDS: oxyCODONE HCL/ACETAMINOPHEN 1 TAB TABLET PO PRN ×3 (02:39→18:52)
[2018-12-12 05:59] LABS: Hematocrit 31.4 % (37.0-47.0); Hemoglobin 10.3 gm/dL (12.5-16.0); Mean Cell Volume 95.4 fl (78-100); Mean Corpuscular Hemoglobin 31.3 pg (27-31); Mean Corpuscular Hgb Conc 32.8 g/dl (32-36); Mean Platelet Volume 9.2 fl (8-12.5); Platelet Count 139 K/mm3 (150-450); Red Blood Count 3.29 M/mm3 (4.2-5.4); Red Cell Distribution Width 13.3 % (11.5-14.0); White Blood Count 8.9 K/mm3 (4.0-10.5)
[2018-12-12 06:08] LABS: Anion Gap 11.4 mmol/L (6.8-13.8); Calcium * 8.2 mg/dL (7.9-10.9); Estimated Creat Clear 75.9; Potassium 3.4 mmol/L (3.4-4.6)
[2018-12-12] MEDS: ENOXAPARIN SODIUM 40 MG/0.4 ML SYRG SC SCH (09:11)
[2018-12-12] MEDS: FLUTICASONE PROPIONATE 120 SPRAY INHALER NS SCH (09:12)
[2018-12-12] MEDS: GABAPENTIN 300 MG CAPSULE PO SCH ×2 (09:13→20:47)
[2018-12-12] MEDS: FLUoxetine HCL 20 MG CAPSULE PO SCH (09:13)
[2018-12-12] MEDS: PANTOPRAZOLE SODIUM 40 MG TABLET.EC PO SCH (09:13)
--- NOTE | 2018-12-12 14:29 | PN ---
Subjective - Date and Time Seen Date: 12/12/18 Time: 14:26 Subjective Narrative: No events overnight. Pain controlled. Making appropriate gains with PT. Objective - Vitals Vitals: Last Vital Signs Temp 36.9 C 12/12/18 10:25 Pulse 71 12/12/18 10:25 Resp 18 12/12/18 10:25 BP 105/41 12/12/18 10:25 Pulse Ox 98 12/12/18 10:25 - Abnormal Lab Findings Abnormal Lab Findings: Abnormal Lab Results 12/12/18 Range/Units 05:54 RBC 3.29 L (4.2-5.4) M/mm3 Hgb 10.3 L (12.5-16.0) gm/dL Hct 31.4 L (37.0-47.0) % MCH 31.3 H (27-31) pg Plt Count 139 L (150-450) K/mm3 - Exam Exam Narrative: Gen: A&Ox3, NAD CV: RRR Resp: breathing nonlabored on RA MSK: RLE--> dressings c/d/i, mild swelling, no erythema, SILT, distal cap refill brisk Cauti Physician Documentation - Urinary Catheter Management Urethral (Bergeron) Date of Insertion: 12/10/18 Time of Insertion: 07:55 Assessment/Plan Plan Narrative: 72 y/o F s/p right total hip arthroplasty, POD #2. -Weightbearing as tolerated, anterior precautions, assistive device PRN -PT/OT progress as tolerated -P.o. diet as tolerated -P.o. pain medication PRN -DVT prophylaxis: Lovenox, SCDs in bed, ALISON demetrioe knee-high -Maintain surgical dressings in place -Acute blood loss anemia: Hgb 10.3, continue to monitor -Disposition: plan for d/c to SNF tomorrow.
[2018-12-12] MEDS: traZODone HCL 150 MG TABLET PO SCH (18:53)
[2018-12-12] MEDS: SENNOSIDES/DOCUSATE SODIUM 1 TAB TABLET PO SCH (20:47)
[2018-12-13] MEDS: oxyCODONE HCL/ACETAMINOPHEN 1 TAB TABLET PO PRN (06:50)
--- NOTE | 2018-12-13 07:51 | DS ---
(1) S/P hip replacement Problem: Acute Qualifiers: Laterality: right Qualified Code(s): Z96.641 - Presence of right artificial hip joint Date of Discharge:: 12/13/18 Description of Stay: Patient is a 72-year-old female postop day 3 status post a right total hip arthroplasty. She is had an uncomplicated stay in the hospital. Patient has had mild pain and occasional spasms of the musculature around her hip status post surgery. Patient otherwise has no acute complaint. Patient has been up and ambulating and met all goals with physical therapy. She is return to p.o. diet without complication. Her pain is well controlled with p.o. pain medication. Patient will be discharged to the [facility] for further care. She will follow-up in the orthopedic outpatient clinic at 2 weeks postoperative. Patient can continue weightbearing as tolerated, anterior precautions. Patient will continue Lovenox until 10 days postop followed by 325 mg aspirin daily for 6 weeks. Maintain dressing in place, monitor for erythema or significant drainage at surgical incision site. Patient call orthopedic outpatient clinic with any acute questions or concerns. 72 y/o F s/p right total hip arthroplasty, POD #3 -Weightbearing as tolerated, anterior precautions, assistive device PRN -PT/OT progress as tolerated -P.o. diet as tolerated -P.o. pain medication PRN, Percocet 5/325 mg 1-2 tabs every 4 to 6 hours as needed for pain p.o. -DVT prophylaxis: Lovenox, SCDs in bed, ALISON hose knee-high -Dressing removed, no significant erythema or drainage, pernio dressing in place -Acute blood loss anemia, stable at this time -Disposition: The [facility] Procedures Performed: see notes below List Procedures: Right total hip arthroplasty Results and Findings: Lab Pending Results 12/11/18 05:30: WBC 8.4, RBC 3.45 L, Hgb 10.9 L, Hct 32.5 L, MCV 94.2, MCH 31.6 H, MCHC 33.5, RDW 13.2, Plt Count 163, MPV 9.0 12/11/18 05:30: Sodium 141, Plasma Sodium 141, Potassium 3.9, Chloride 107 H, Carbon Dioxide 29.8, Anion Gap 8.1, BUN 10, Creatinine 0.60, Est GFR (Non-Af Amer) 105, BUN/Creatinine Ratio 16.7, Random Glucose 127 H, Calcium 8.0 12/12/18 05:54: WBC 8.9, RBC 3.29 L, Hgb 10.3 L, Hct 31.4 L, MCV 95.4, MCH 31.3 H, MCHC 32.8, RDW 13.3, Plt Count 139 L, MPV 9.2 12/12/18 05:54: Sodium 140, Plasma Sodium 140, Potassium 3.4, Chloride 104, Carbon Dioxide 28.0, Anion Gap 11.4, BUN 8, Creatinine 0.57, Est GFR (Non-Af Amer) 111, BUN/Creatinine Ratio 14.0, Random Glucose 95, Calcium 8.2 Discharge Location: [facility] Disposition: SNF Condition: Good Level of Care: SNF Discharge Activity: Weight bearing - anterior precautions Discharge Diet: General/regular food Long-Term Therapy: Physical Therapy, Occupation Therapy Referrals: Kwadwo Das MD [Staff Physician] - 12/25/18 9:00 am Problem Oriented Discharge Instructions to Patient/Family: Total Hip Replacement, [id number] Print Language (Slovak or Mongolian Available): Slovak Additional Patient Instructions (free text): To [facility] at discharged for PT and OT to evaluate and treat. Please call report and fax discharge information. Follow up in the office with Dr Das on SundayDecember 25 at 9:00am. Prescriptions (Any new or edited meds): Cyclobenzaprine HCl [Flexeril] 10 mg PO Q6H PRN #30 tab PRN Reason: Muscle Spasm Enoxaparin Sodium [Lovenox] 40 mg SC Q24H #7 disp.syrin oxyCODONE HCL/ACETAMINOPHEN [Percocet 5 MG/325 MG] 2 tab PO Q4H PRN #60 tab PRN Reason: Moderate Pain (Pain Scale 4-6) Complete Home Medications List: Complete Home Medication List: aspirin 325 mg tablet 325 mg PO DAILY 12/10/17 gabapentin 300 mg capsule 300 mg PO BID #180 cap 09/30/18 tizanidine 2 mg capsule 2 mg PO TID PRN #270 cap 09/30/18 trazodone 300 mg tablet 300 mg PO DAILY #90 tab 09/30/18 fluticasone propionate 50 mcg/actuation nasal spray,suspension 1 spray JAS DAILY #9.9 g 11/28/18 fluoxetine 40 mg capsule 40 mg PO DAILY #90 cap 12/04/18 lansoprazole 30 mg capsule,delayed release 30 mg PO DAILY #90 cap 12/04/18 Back Brace [Back Stabilizer] 0 ea .ROUTE .MEDSUPPLY 12/10/18 Cyclobenzaprine HCl [Flexeril] 10 mg PO Q6H PRN #30 tab 12/13/18 Enoxaparin Sodium [Lovenox] 40 mg SC Q24H #7 disp.syrin 12/13/18 oxyCODONE HCL/ACETAMINOPHEN [Percocet 5 MG/325 MG] 2 tab PO Q4H PRN #60 tab 12/13/18
[2018-12-13] MEDS: ENOXAPARIN SODIUM 40 MG/0.4 ML SYRG SC SCH (08:19)
[2018-12-13] MEDS: PANTOPRAZOLE SODIUM 40 MG TABLET.EC PO SCH (08:20)
[2018-12-13] MEDS: FLUoxetine HCL 20 MG CAPSULE PO SCH (08:20)
[2018-12-13] MEDS: GABAPENTIN 300 MG CAPSULE PO SCH (08:20)
[2018-12-13] MEDS: FLUTICASONE PROPIONATE 120 SPRAY INHALER NS SCH (08:20)
[2018-12-13 11:30] VITALS: BP 142/65
== END 2018-12-13 09:30 | DRG 470 ==
LOC: MS 05:48
PROVIDERS: ADMIT Orthopaedic Surgery; ATTEND Orthopaedic Surgery
DX: J30.9 Allergic rhinitis, unspecified; E78.5 Hyperlipidemia, unspecified; J44.9 Chronic obstructive pulmonary disease, unspecified; I73.00 Raynaud's syndrome without gangrene; I10 Essential (primary) hypertension; M16.11 Unilateral primary osteoarthritis, right hip
CPT/HCPCS: 36415; 73502; 80048; 85027; 97110; 97116; 97161; 97165; 97535